=== PATIENT | female | born 1975 ===

== ENCOUNTER 2019-02-12 12:33 | Emergency (ER) | payer MEDICAID ==
[2019-02-12 13:41] VITALS: BP 141/77; PULSE 75; RESP 20; TEMP 97.7; O2SAT 99
--- NOTE | 2019-02-12 15:08 | ED PDOC ---
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 History obtained using [employer] Enrollment Processor #[id number]. Patient reports that of feeling a bump and pain to the left side of the throat for the past three weeks. Patient notes of developing left ear pain and a left sided headache two weeks ago. Headache comes and goes, but ear pain is constant, she also reports pain to the throat starting 2 weeks ago. Patient additionally reports of developing a fever last night with a Tmax of 103. Patient took Ibuprofen with relief of fever. Patient states she presents to the ED today because the pain has become unbearable. Otherwise, patient d enies sick contacts, recent travel, difficulty swallowing, dyspnea, nasal congestion, cough, chest pain, palpitations, unintentional weight loss PMD: Vida Pringle LNMP: 01/24/2019 Past Medical History Reviewed: Historical Data, Nursing Documentation, Vital Signs Vital Signs: Last Vital Signs Temp 97.7 F 02/12/19 13:40 Pulse 75 02/12/19 13:40 Resp 20 02/12/19 13:40 BP 141/77 02/12/19 13:40 Pulse Ox 99 02/12/19 13:40 - Medical History PMH: No Chronic Diseases - Surgical History Surgical History: No Surg Hx - Family History Family History: States: Unknown Family Hx - Social History Current smoker - smoking cessation education provided: No Alcohol: None Drugs: Denies - Home Medications Home Medications: Ambulatory Orders Medication Instructions Recorded Amoxicillin 875 mg PO BID 10 Days #20 tablet 02/12/19 Ibuprofen [Motrin Tab] 400 mg PO Q6 PRN #20 tab 02/12/19 - Allergies Allergies/Adverse Reactions: Allergies Allergy/AdvReac Type Severity Reaction Status Date / Time No Known Allergies Allergy Verified 02/12/19 13:38 Review of Systems ROS Statement: Except As Marked, All Systems Reviewed And Found Negative Constitutional: Positive for: Fever. Negative for: Weight loss ENT: Positive for: Ear Pain (left), Throat Pain (and noting a bump). Negative for: Nose Congestion, Mouth Swelling, Throat Swelling, Other (difficulty swallowing) Cardiovascular: Negative for: Chest Pain Respiratory: Negative for: Cough, Other (dyspnea) Neurological: Positive for: Headache (left-sided) Physical Exam - Reviewed Nursing Documentation Reviewed: Yes Vital Signs Reviewed: Yes - Physical Exam Comments: GENERAL APPEARANCE: Patient is awake, alert, oriented x 3, in no acute distress. Patient appears well, in no discomfort. SKIN: Warm, dry; (-) cyanosis; (-) rash. HEAD: (-) scalp swelling or tenderness, (-) temporal artery tenderness. EYES: (-) conjunctival pallor, (-) scleral icterus. ENMT: Canals : (-) cerumen impaction, TMs: (+) Left TM bulging and (+) erythema. Right TM appears normal. (-) effusion, (-) perforation,(-) vesicles, other ear normal. Frontal / maxillary sinuses : (-) tenderness. (-) TMJ tenderness. Pharynx: Clear; (-) erythema, (-) exudate. Airway patent: (-) stridor. (-) sinus tenderness; mucous membranes are moist. (-) trismus, (-) drooling NECK: (-) midline tenderness, (-) stiffness, (-) meningismus, (+) Left sided tender anterior cervical lymphadenopathy.(-) thyromegaly. CHEST AND RESPIRATORY: (-) rales, (-) rhonchi, (-) wheezes; breath sounds equal bilaterally. HEART AND CARDIOVASCULAR: (-) irregularity; (-) murmur, (-) gallop. ABDOMEN AND GI: Soft; (-) tenderness. EXTREMITIES: (-) deformity. NEURO AND PSYCH: Mental status as above. 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 Strength and DTRs symmetric. Babinski normal bilaterally. - ECG O2 Sat by Pulse Oximetry: 99 (RA) Pulse Ox Interpretation: Normal Medical Decision Making Medical Decision Making: Time: 1418 Impression: Otitis Media Plan: -- Discussed need to follow up for further management of symptoms. Patient instructed to take Amoxicillin and Ibuprofen as prescribed for symptom relief. Patient is stable for discharge home. Discussed diagnosis, treatment, return precautions and f/u with pt who is understanding, in agreement and stable for dc Scribe Attestation: Documented by Valerio Cifuentes, acting as a scribe forSloan Caldwell PA-C. Provider Scribe Attestation: All medical record entries made by the Scribe were at my direction and personally dictated by me. I have reviewed the chart and agree that the record accurately reflects my personal performance of the history, physical exam, medical decision making, and the department course for this patient. I have also personally directed, reviewed, and agree with the discharge instructions and disposition. Disposition - Clinical Impression Clinical Impression: Otitis media of left ear - Patient ED Disposition Is Patient to be Admitted: No Counseled Patient/Family Regarding: Studies Performed, Diagnosis, Need For Followup, Rx Given - Disposition Referrals: your, doctor [Other] [facility] [Outside] Disposition: Routine/Home Disposition Time: 14:03 Condition: STABLE Additional Instructions: Regrese a la ED para sntomas nuevos o que empeoran, incapacidad para tragar, dolor en el pecho, dificultad para respirar. Syed un seguimiento con caban mdico de cabecera o clnica en 3 a 5 rush. Glory antibiticos segn lo prescrito hasta terminar. Alternar entre Tylenol e Ibuprofeno para la fiebre y el dolor Prescriptions: Amoxicillin 875 mg PO BID 10 Days #20 tablet Ibuprofen [Motrin Tab] 400 mg PO Q6 PRN #20 tab PRN Reason: Pain, Moderate (4-7) Instructions: Ear Infections (Otitis Media) (DC) Forms: [employer] (Mauritanian) Print Language: BOTSWANAN - POA Present On Arrival: None
== END 2019-02-12 14:19 | disposition home or self-care (01) ==
LOC: H.ER 12:33
DX: H66.92 Otitis media, unspecified, left ear (principal)

== ENCOUNTER 2019-03-03 13:27 | Emergency (ER) | payer MEDICAID ==
[2019-03-03 13:35] VITALS: BP 113/80; PULSE 86; RESP 16; TEMP 98; O2SAT 99
[2019-03-03] MEDS ORDERED: Sodium Chloride 0.9% 1,000 ML IV STA (13:45)
--- NOTE | 2019-03-03 13:52 | ED PDOC ---
HPI: General Adult Time Seen by Provider: 03/03/19 13:45 Chief Complaint (Nursing): ENT Problem Chief Complaint (Provider): ENT Problem History Per: Patient History/Exam Limitations: no limitations Onset/Duration Of Symptoms: Other (x4 weeks) Additional Complaint(s): Patient is a 43 y/o female with no significant PMHx who presents to the ED for evaluation of ongoing throat pain for the past four weeks. Patient was recently seen by Dr. Rosa who prescribed Augmentin. Patient has scheduled an appointment as an outpatient for a CT Neck. However, patient states she is unable to tolerate the pain, thus, prompting her ED visit. Patient denies fever, chills, and vomiting. PCP: Dr. Vida Pringle Past Medical History Reviewed: Historical Data, Nursing Documentation, Vital Signs Vital Signs: Last Vital Signs Temp 98 F 03/03/19 13:31 Pulse 86 03/03/19 13:31 Resp 16 03/03/19 13:31 BP 113/80 03/03/19 13:31 Pulse Ox 99 03/03/19 13:31 - Medical History PMH: No Chronic Diseases - Surgical History Surgical History: No Surg Hx - Family History Family History: States: Unknown Family Hx - Home Medications Home Medications: Ambulatory Orders Medication Instructions Recorded Amoxicillin 875 mg PO BID 10 Days #20 tablet 02/12/19 Ibuprofen [Motrin Tab] 400 mg PO Q6 PRN #20 tab 02/12/19 Ibuprofen [Motrin Tab] 600 mg PO Q8 PRN #21 tab 03/03/19 - Allergies Allergies/Adverse Reactions: Allergies Allergy/AdvReac Type Severity Reaction Status Date / Time No Known Allergies Allergy Verified 02/12/19 13:38 Review of Systems ROS Statement: Except As Marked, All Systems Reviewed And Found Negative Constitutional: Negative for: Fever, Chills ENT: Positive for: Throat Pain Gastrointestinal: Negative for: Vomiting Physical Exam - Reviewed Nursing Documentation Reviewed: Yes Vital Signs Reviewed: Yes - Physical Exam Appears: Positive for: No Acute Distress Head Exam: Positive for: ATRAUMATIC, NORMAL INSPECTION, NORMOCEPHALIC Skin: Positive for: Normal Color, Warm, DRY Eye Exam: Positive for: EOMI, Normal appearance, PERRL ENT: Positive for: Normal ENT Inspection. Negative for: Pharyngeal Erythema, Tonsillar Exudate, Tonsillar Swelling Neck: Positive for: Normal, Painless ROM, Supple Cardiovascular/Chest: Positive for: Regular Rate, Rhythm. Negative for: Murmur Respiratory: Positive for: Normal Breath Sounds. Negative for: Respiratory Distress Neurological/Psych: Positive for: Alert, Oriented (x3) - Laboratory Results Result Diagrams: 03/03/19 14:20 03/03/19 14:20 - ECG O2 Sat by Pulse Oximetry: 99 (RA) Pulse Ox Interpretation: Normal - Progress ED Course And Treament: CT SOFT TISSUE NECK: IMPRESSION: No evidence of large cervical masses or collections. There is heterogeneous appearance of the left lobe of the thyroid gland with at least 2 discrete nodules in the right lobe of the thyroid gland. Recommend follow-up thyroid ultrasound. Few tiny nonspecific bilateral cervical lymph nodes none of which appear pathologically enlarged. TORADOL 15 MG IV X 1 DOSE rapid strep neg mono neg Medical Decision Making Medical Decision Making: Time: 1343 Impression: Throat Pain Plan: CT Neck Soft Tissue w/ Contrast CMP TSH Urine CBC IV Fluids [place] Stat Rapid Strep Group A Antigen Time: 1719 FINDINGS: NASOPHARYNX: Unremarkable. SUPRAHYOID NECK: Unremarkable oropharynx, oral cavity, parapharyngeal space and retropharyngeal space.. Note made of slight asymmetry of the vallecular likely due to some encroaching lingual tonsils; residual and/or retained secretion may contribute. INFRAHYOID NECK: Unremarkable larynx, hypopharynx, and supraglottic space. Vocal cords intact. MASS: There are no cervical masses or collections. GLANDS: Parotid and submandibular glands unremarkable. There appear to be 2 discrete nodules in the right lobe of the thyroid gland. Left lobe of the thyroid gland is heterogeneous in enhancing characteristics. Follow-up thyroid ultrasound is recommended further evaluation. LYMPH NODES: There are multiple small nonspecific bilateral level 1 and level 2 lymph nodes none of which appear pathologically enlarged. CERVICAL SPINE: Mild multilevel degenerative spondylosis of the thoracic spine most notably affecting the C5-C6, C6-C7 and to a slightly lesser degree C4-C5 levels. VASCULAR STRUCTURES: Unremarkable. OTHER FINDINGS: Lung apices are clear. IMPRESSION: No evidence of large cervical masses or collections. There is heterogeneous appearance of the left lobe of the thyroid gland with at least 2 discrete nodules in the right lobe of the thyroid gland. Recommend follow-up thyroid ultrasound. Few tiny nonspecific bilateral cervical lymph nodes none of which appear pathologically enlarged. Scribe Attestation: Documented by Gigi Carrillo, acting as a scribe for Sandra Guidry PA-C. Provider Scribe Attestation: All medical record entries made by the Scribe were at my direction and personally dictated by me. I have reviewed the chart and agree that the record accurately reflects my personal performance of the history, physical exam, medical decision making, and the department course for this patient. I have also personally directed, reviewed, and agree with the discharge instructions and disposition. Disposition - Clinical Impression Clinical Impression: Thyroid nodule, Throat pain - Patient ED Disposition Is Patient to be Admitted: No - Disposition Disposition: Routine/Home Disposition Time: 17:28 Condition: FAIR Prescriptions: Ibuprofen [Motrin Tab] 600 mg PO Q8 PRN #21 tab PRN Reason: Pain, Moderate (4-7) Instructions: Sore Throat, Adult (DC), Thyroid Nodules
[2019-03-03 14:59] LABS: BASO % 0.5 % (0.0-2.0); EOS # 0.3 K/uL (0.0-0.7); EOS % 5.6 % (0.0-4.0); HEMOGLOBIN 13.8 g/dL (12.0-16.0); LYMPH # 1.8 K/uL (1.0-4.3); LYMPH % 31.5 % (20.0-40.0); MEAN CELL VOLUME 88.4 fl (81.0-99.0); MEAN CORPUSCULAR HEMOGLOBIN 28.6 pg (27.0-31.0); MEAN CORPUSCULAR HGB CONC 32.4 g/dL (33.0-37.0); MEAN PLATELET VOLUME 8.7 fl (7.2-11.7); MONO # 0.3 K/uL (0.0-0.8); MONO % 5.6 % (0.0-10.0); NEUT # 3.2 K/uL (1.8-7.0); NEUT % 56.8 % (50.0-75.0); NRBC % 0.1 % (0.0-0.0); RBC 4.82 Mil/uL (3.80-5.20); WHITE BLOOD COUNT 5.7 K/uL (4.8-10.8)
[2019-03-03 15:04] LABS: ALB/GLOB RATIO 1.3 (1.0-2.1); ALBUMIN 4.1 g/dL (3.5-5.0); ALT/SGPT 19 U/L (9-52); AST/SGOT 28 U/L (14-36); BLOOD UREA NITROGEN 19 mg/dl (7-17); GFR NON-AFRICAN AMERICAN > 60
[2019-03-03] MEDS ORDERED: Sodium Chloride 0.9% 50 ML IV ONE (15:21)
[2019-03-03] MEDS ORDERED: Iohexol 300 100 ML IJ ONE (15:21)
--- NOTE | 2019-03-03 17:22 | CT ---
Date of service: 03/03/2019 PROCEDURE: CT NECK WITH CONTRAST HISTORY: R/O MASS COMPARISON: None available. TECHNIQUE: Contiguous helical/transaxial sections of the neck performed in standard fashion following intravenous injection of approximately 90 cc Omnipaque 300 contrast material. Additional 2D sagittal and coronal reformats generated. No prior study available comparison.. Small BB markers have been placed over the anterolateral borders of the mid to lower neck. Radiation dose: Total exam DLP = 278.58 mGy-cm. This CT exam was performed using one or more of the following dose reduction techniques: Automated exposure control, adjustment of the mA and/or kV according to patient size, and/or use of iterative reconstruction technique. FINDINGS: NASOPHARYNX: Unremarkable. SUPRAHYOID NECK: Unremarkable oropharynx, oral cavity, parapharyngeal space and retropharyngeal space.. Note made of slight asymmetry of the vallecular likely due to some encroaching lingual tonsils; residual and/or retained secretion may contribute. INFRAHYOID NECK: Unremarkable larynx, hypopharynx, and supraglottic space. Vocal cords intact. MASS: There are no cervical masses or collections. GLANDS: Parotid and submandibular glands unremarkable. There appear to be 2 discrete nodules in the right lobe of the thyroid gland. Left lobe of the thyroid gland is heterogeneous in enhancing characteristics. Follow-up thyroid ultrasound is recommended further evaluation. LYMPH NODES: There are multiple small nonspecific bilateral level 1 and level 2 lymph nodes none of which appear pathologically enlarged. CERVICAL SPINE: Mild multilevel degenerative spondylosis of the thoracic spine most notably affecting the C5-C6, C6-C7 and to a slightly lesser degree C4-C5 levels. VASCULAR STRUCTURES: Unremarkable. OTHER FINDINGS: Lung apices are clear. IMPRESSION: No evidence of large cervical masses or collections. There is heterogeneous appearance of the left lobe of the thyroid gland with at least 2 discrete nodules in the right lobe of the thyroid gland. Recommend follow-up thyroid ultrasound. Few tiny nonspecific bilateral cervical lymph nodes none of which appear pathologically enlarged.
== END 2019-03-03 18:00 | disposition home or self-care (01) ==
LOC: H.ER 13:27
DX: J02.9 Acute pharyngitis, unspecified (principal); E04.2 Nontoxic multinodular goiter
CPT/HCPCS: 70491; 80053; 81025; 84443; 85025; 86308; 87070; 87430; 96374; 99283; J1885; J7030; Q9967